=== PATIENT | male | born 1985 | race Caucasian/White ===

== ENCOUNTER 2018-02-25 10:15 | Emergency (ER) | payer OTHER ==
--- NOTE | 2018-02-25 15:08 | CT ---
C OF ABDOMEN AND PELVIS PERFORMED WITH CONTRAST ENHANCEMENT: HISTORY: Postop abdominal pain. The patient had a spine surgery with placement of anterior screws at the L5-S 1 level on 02/23/2018. FINDINGS: The lung bases show bibasilar atelectatic-type lung change. The liver shows a suggestion of possibly some fatty change. The spleen, pancreas, and gallbladder re gions appear unremarkable. Right and left adrenal glands are normal in size and appearance. A punctate nonobstructing lower matt e left renal calculus is seen measuring in the 3-4 mm range. There is no significant periaortic or m esenteric adenopathy. There is mild gaseous distention of the colon. No evidence of any dilatation of the small bowel. CT OF PELVIS PERFOMRED WITH CONTRAST ENHANCEMENT: There is some air present within the bladder which his presumably on the basis of catheterization. T he bladder is mildly distended. There is some presacral edema change seen. There is postoperative c hange at the L5-S1 level. Directly anterior to this level is some tiny minimal air density and some small areas of air density are seen along the left anterior abdominal wall and left retroperitoneum . There is some fat stranding associated with these findings. This is felt to be fairly typical for the recent surgery. There is a fat-containing paraumbilical hernia noted. IMPRESSION: 1. Punctate nonobstructing lower pole left renal calculus. 2. Postoperative changes of the L5-S1 level with what are felt to be some postsurgical changes of th e [id number] related to this. 3. Fat-containing paraumbilical hernia. 4. Mild gaseous distention of the colon without any evidence for obstruction. POS: MARK ANTHONY
== END 2018-02-25 13:37 | disposition home or self-care (01) ==
LOC: ERS 10:15
DX: K91.89 Other postprocedural complications and disorders of digestive system (principal); K56.7 Ileus, unspecified; G89.18 Other acute postprocedural pain; M54.5 Low back pain
CPT/HCPCS: 36415; 74177; 87040

== ENCOUNTER 2019-03-08 13:01 | Outpatient (CLI) | payer OTHER ==
--- NOTE | 2019-03-08 14:42 | MRI ---
MR of the leftankle without contrast INDICATION: Chronic ankle sprains TECHNIQUE: T1, T2 fat sat, PD fat sat axial in addition to sagittal T1, T2 fat sat and coronal PD fat sat sequences were obtained of the leftankle. COMPARISON: None. FINDINGS: Ligaments: ATFL: There is some thickening with increased T2 signal involving the lateral malleolus attachment to the ATFL suspicious for a chronic partial-thickness tear. PTFL: Intact. Calcaneofibular ligament: Intact. Syndesmotic ligaments: Intact. Deltoid ligament: Intact. Spring ligament: Intact. Visualized Lisfranc ligament: Intact. Tendons: Peroneal tendons: Intact without tenosynovitis. Posterior tibialis: Intact without tenosynovitis. Flexor digitorum longus: Intact without tenosynovitis. Flexor hallucis longus: Intact without tenosynovitis. Extensor hallucis longus: Intact without tenosynovitis. Tibialis anterior: Intact without tenosynovitis. Extensor digitorum longus: Intact without tenosynovitis. Achilles tendon Intact without paratenonitis. Tibiotalar joint: Talar Dome: Intact without evidence of osteochondral defect Joint effusion: None. Subtalar joint: Intact. Bones: There is mild edema involving the lateral aspect of the lateral malleolus. Sinus Tarsi: Normal signal intensity. Plantar fascia: Normal appearing. Visualized intrinsic foot musculature: Normal appearing.. IMPRESSION: 1. 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 2. Mild nonspecific subcortical edema involving the lateral malleolus may reflect sequela of blunt tr auma.
== END 2019-03-08 13:02 | disposition home or self-care (01) ==
LOC: SCSMRI 13:01
PROVIDERS: ATTEND Podiatrist Foot & Ankle Surgery
DX: S93.492A Sprain of other ligament of left ankle, initial encounter (principal); M25.572 Pain in left ankle and joints of left foot; G89.29 Other chronic pain; R60.0 Localized edema

== ENCOUNTER 2020-06-07 07:23 | Day surgery (SDC) | payer OTHER ==
[2020-06-06 13:35] VITALS: BMI 27.7
[2020-06-07] MEDS ORDERED: cefOXitin Sodium/Dextrose 2 GM/50 ML BAG ONE (08:06)
[2020-06-07] MEDS ORDERED: Dexmedetomidine 200 MCG/2 ML VIAL ONE (09:00)
[2020-06-07] MEDS ORDERED: HYDROmorphone 0.5 MG/0.5 ML SYRINGE ONE ×2 (09:00→09:01)
[2020-06-07] MEDS ORDERED: Bupivacaine 0.25% HCL 30 ML VIAL ONE (09:02)
[2020-06-07] MEDS ORDERED: XYLOCAINE 2%-EPI 1:100,000 20 ML VIAL ONE (09:02)
[2020-06-07] MEDS ORDERED: Bacitracin Zinc Ointment 30 gm TUBE ONE (09:02)
[2020-06-07] MEDS ORDERED: Ketorolac Tromethamine 30 MG/ML VIAL ONE (13:14)
[2020-06-07] MEDS ORDERED: Ondansetron PF 4 MG/2 ML Vial ONE (13:14)
[2020-06-07] MEDS ORDERED: PROPOFOL 200 MG/20 ML VIAL ONE (13:14)
[2020-06-07] MEDS ORDERED: Dexamethasone 20 MG/5 ML VIAL ONE (13:14)
[2020-06-07] MEDS ORDERED: Lidocaine 1% PF 5 ML VIAL ONE (13:14)
== END 2020-06-07 12:40 | disposition home or self-care (01) ==
LOC: SDC 07:23
PROVIDERS: ATTEND Surgery
PROC: 0D8R0ZZ Division of Anal Sphincter, Open Approach (ICD-10-PCS; principal; 2020-06-07)
PROC: 0DBQXZZ Excision of Anus, External Approach (ICD-10-PCS; principal; 2020-06-07)
DX: K64.4 Residual hemorrhoidal skin tags (principal); K60.2 Anal fissure, unspecified; K62.89 Other specified diseases of anus and rectum
CPT/HCPCS: 88304; J0690; J0694; J1100; J1170; J1885; J2405; J2704; S0020